=== PATIENT | male | born 2000 | race Caucasian/White ===

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

== ENCOUNTER 2020-07-28 14:24 | Emergency (ER) | payer OTHER, SELFPAY ==
--- NOTE | ~2020-07-28 | XR_ITS ---
EXAMINATION: XR forearm RT 2V DATE: 07/28/2020 14:45 INDICATION: Distal right ulnar pain post fall against washing machine. TECHNIQUE: AP an lateral views of the right forearm were obtained. COMPARISON: none FINDINGS: Alignment is normal. No fracture. Joint spaces are normal. Soft tissues are unremarkable. IMPRESSION: 1. Negative right forearm radiographs. Reviewed, dictated and finalized at location A.
[2020-07-28 14:30] VITALS: BP 139/57; PULSE 94; RESP 14; TEMP 37.2; O2SAT 100
--- NOTE | 2020-07-28 15:04 | ED.GENADULT ---
HPI - General Adult General Chief complaint: Extremity Injury, Upper Stated complaint: right forearm injury Time Seen by Provider: 07/28/20 15:05 Source: patient Mode of arrival: ambulatory Limitations: no limitations History of Present Illness HPI narrative: 20-year-old male patient presents to the [facility] with complaints of right forearm pain. Patient states he tripped over some boots today and states that he hit his right forearm on the corner of a washer. Patient denies taking thing for pain prior to arrival. Denies any numbness or tingling to the hand or fingertips. Denies any pain to the wrist. Related Data Home Medications Medication Instructions Recorded Confirmed No Home Medications 07/28/20 07/28/20 Allergies Allergy/AdvReac Type Severity Reaction Status Date / Time No Known Allergies Allergy Verified 07/28/20 14:54 Review of Systems Review of Systems: Narrative: CONSTITUTIONAL: Denies fever, chills, or sweats. EYES: Denies visual changes, redness, or discharge. ENT: Denies rhinorrhea, congestion, sore throat, or otalgia. CARDIOVASCULAR: Denies chest pain, palpitations, or edema. RESPIRATORY: Denies cough or dyspnea. GASTROINTESTINAL: Denies abdominal pain, nausea, vomiting, or diarrhea. GENITOURINARY: Denies dysuria or hematuria. SKIN: Denies rash or itching. MUSCULOSKELETAL: Denies back pain, joint pain, or myalgia. Positive right forearm pain NEUROLOGIC: Denies headache, numbness, or weakness. PSYCHIATRIC: Denies anxiety or depression. PMFSH Comments At the time of my signature I agree with nursing past medical history, surgical, social, and family history. There is no relevant family history pertinent to the presenting complaint. Exam Narrative: Exam Narrative: GENERAL: Well-appearing, well-nourished, and in no acute distress. HEAD: Normocephalic, atraumatic. EYES: PERRLA and EOMI. ENT: Nares clear, no rhinorrhea or epistaxis. Mucous membranes moist. NECK: Supple. No lymphadenopathy CHEST: Clear to auscultation. No respiratory distress. HEART: Regular rate and rhythm. No murmur heard. Normal peripheral pulses. ABDOMEN: Soft, nontender, nondistended, normal active bowel sounds. EXTREMITIES: The R forearm is without obvious asymmetry or deformity when compared to the L arm. Patient does have some swelling and tenderness noted on the ulnar side of the distal right forearm. No erythema, warmth. No open wounds. No overlying erythema or warmth. No bony crepitus or focal area of TTP. No scaphoid fullness or tenderness to direct palpation or axial load. Normal flex/extension, ulnar/radial deviation. Motor/sensory function of ulnar, radial, median nerves intact. Ulnar and radial pulses intact. Negaitve Phalen's/Tinel's sign. Negative Carter test. SKIN: Warm, dry, no rash. NEURO: No focal deficits. Alert and oriented x3. Course Vital Signs Vital signs: Vital Signs Temperature 37.2 C 07/28/20 14:30 Pulse Rate 94 07/28/20 14:30 Respiratory Rate 14 07/28/20 14:30 Blood Pressure 139/57 L 07/28/20 14:30 Pulse Oximetry 100 07/28/20 14:30 Temperature 37.2 C 07/28/20 14:30 Pulse Rate 94 07/28/20 14:30 Respiratory Rate 14 07/28/20 14:30 Blood Pressure 139/57 L 07/28/20 14:30 Pulse Oximetry 100 07/28/20 14:30 Vital signs reviewed. Medical Decision Making Differential Diagnosis Differential Diagnosis: Differential diagnosis: Paronychia, felon, cellulitis, flexor tenosynovitis, mallet finger, boutonniere deformity, flexor tendons, dislocated digits, unstable fracture, unstable ligamentous injury, closed space infection, carpal tunnel syndrome, contusion. Discussed with patient that the x-ray is negative for any acute fractures. Discussed with patient that he should continue to ice it, elevate it may take Tylenol and ibuprofen as needed for pain. Patient verbalized understanding of this denies any other questions or concerns at this time. Vital Signs Vital Signs:
== END 2020-07-28 15:10 | disposition home or self-care (01) ==
PROVIDERS: Emergency Provider Nurse Practitioner Family
DX: S50.11XA Contusion of right forearm, initial encounter (principal); W22.8XXA Striking against or struck by other objects, initial encounter
CPT/HCPCS: 73090; 99213; G0463

== ENCOUNTER 2022-12-03 08:24 | Emergency (ER) | payer OTHER, SELFPAY ==
[2022-12-03 09:17] VITALS: BP 131/64; PULSE 89; RESP 18; TEMP 36.9; O2SAT 98
--- NOTE | 2022-12-03 10:05 | ED.URI ---
HPI - URI/Sore Throat General Chief Complaint: Upper Respiratory Infection Stated Complaint: sorethroat Time Seen by Provider: 12/03/22 10:06 Source: patient and RN notes reviewed Mode of arrival: ambulatory Limitations: no limitations History of Present Illness HPI Narrative: 22 year old male who presents to [facility] care with complaints of cough and congestion,sinus drainage and pressure,chills, and sore throat since yesterday. He reports no known fevers or body aches and has been taking Mucinex for his symptoms. Patient reports that his infant son has been ill with respiratory infection. Patient states no shortness of breath, no tachypnea noted or any accessory muscle use with breathing, SAO2 98% on room air. Patient has not had COVID vaccinations or flu shot. MD elicited complaint: cough and sore throat Pertinent past history: seasonal allergies Onset (ago): day(s) (day 2 of symptoms) Treatments prior to arrival: other (Mucinex) Related Data Allergies Allergy/AdvReac Type Severity Reaction Status Date / Time No Known Allergies Allergy Verified 12/03/22 09:17 Review of Systems Review of Systems: CONSTITUTIONAL: Reports malaise, chills, sweats, no known fever. EYES: Denies visual changes, redness, or discharge. ENT: Reports rhinorrhea, congestion, sinus pain,no otalgia, positive for sore throat. CARDIOVASCULAR: Denies chest pain, palpitations, or edema. RESPIRATORY: Reports cough.? Denies dyspnea. GASTROINTESTINAL: Denies abdominal pain, nausea, vomiting, diarrhea SKIN: Denies rash or itching. MUSCULOSKELETAL: Denies myalgia. NEUROLOGIC: Denies headache. All systems reviewed & are unremarkable except as noted in HPI and below PMFSH Past Medical History Medical History (Updated 12/04/22 @ 08:02 by Jaky Lindquist NP) Fracture of left wrist Seasonal allergies Social History Social History (Updated 12/04/22 @ 08:08 by Jaky Lindquist NP) Smoking status: Never smoker Alcohol intake: current Alcohol use details: social Substance use: never Substance use type: does not use Living arrangements: with family Gender identity (if verbalized by the patient): Male Comments At time of signature, agree with nursing past medical, surgical, social and family history. There is no relevant family history pertinent to the presenting complaint Exam Narrative: GENERAL: Well-appearing, well-nourished, and in no acute distress. HEAD: Normocephalic EYES: PERRLA, conjunctivae clear ENT: Nares clear, turbinates edematous and erythematous, clear to light yellow discharge. Mucous membranes moist. TM pearly winston with dull light reflex bilaterally; no tragal tenderness. Oropharynx erythematous without lesions. Tonsils red enlarged and without exudate, no drooling, no hoarseness, no trismus, uvula midline. NECK: Supple. No lymphadenopathy CHEST: Clear to auscultation, breath sounds equal. No wheezing, rhonchi, rales, or stridor. No respiratory distress, speaks in full sentences.cough,SAO2 98% on room air HEART: Regular rate and rhythm. No murmur heard. SKIN: Warm, dry, no rash. NEURO: Alert and oriented x3. PSYCH: Normal mood and affect Course Course Emergency Course: Patient is aware of diagnosis, understands and agrees to treatment plan.? Anticipatory guidance given.? Patient agrees to follow-up as directed and is aware of reasons to seek care at the emergency department. Portions of this record may have been created with voice recognition software Level of Care: Express Care Visit Vital Signs Vital signs: Vital Signs Temperature 36.9 C 12/03/22 09:17 Pulse Rate 89 12/03/22 09:17 Respiratory Rate 18 12/03/22 09:17 Blood Pressure 131/64 12/03/22 09:17 Pulse Oximetry 98 12/03/22 09:17 Oxygen Delivery Room Air 12/03/22 09:17 Temperature 36.9 C 12/03/22 09:17 Pulse Rate 89 12/03/22 09:17 Respiratory Rate 18 12/03/22 09:17 Blood Pressure 131/64 02
== END 2022-12-03 11:08 | disposition home or self-care (01) ==
PROVIDERS: Emergency Provider Registered Nurse
DX: J03.90 Acute tonsillitis, unspecified (principal); Z20.822 Contact with and (suspected) exposure to COVID-19
CPT/HCPCS: 87081; 87426; 87804; 87880; 99213; C9803; G0463

== ENCOUNTER 2024-03-13 15:59 | Emergency (ER) | payer OTHER, SELFPAY ==
[2024-03-13 16:22] VITALS: BP 114/64; PULSE 90; RESP 18; TEMP 37.1; O2SAT 100
--- NOTE | 2024-03-13 18:14 | ED.URI ---
HPI - URI/Sore Throat General Chief Complaint: Upper Respiratory Infection Stated Complaint: Shortness of Breath/Cough Time Seen by Provider: 03/13/24 16:49 Source: patient, RN notes reviewed and old records reviewed Mode of arrival: ambulatory Limitations: no limitations History of Present Illness HPI Narrative: 23-year-old male to Express Care with complaint of fatigue, dry cough, absence of appetite for 3 days. Patient denies fever, nausea, vomiting, diarrhea, ear pain, throat pain, allergies, pertinent medical history, abdominal pain. Patient has attempted to treat at home with DayQuil relief. Patient able to tolerate fluids by mouth. Patient quiet and ill appearing in exam room. respirations even and nonlabored. No acute distress. Related Data Home Medications Medication Instructions Recorded Confirmed No Home Medications 03/13/24 03/13/24 Allergies Allergy/AdvReac Type Severity Reaction Status Date / Time No Known Allergies Allergy Verified 03/13/24 16:43 Review of Systems Review of Systems: All systems reviewed & are unremarkable except as noted in HPI and below Constitutional: Constitutional: Reports no additional constitutional complaints Eyes: Eyes: Reports no additional eye complaints ENT: Reports system reviewed and no additional complaints, except as documented Cardiovascular: Cardiovascular: Reports no additional cardiovascular complaints, Denies chest pain and Denies dyspnea Respiratory: Respiratory: Reports no additional respiratory complaints, Denies cough and Denies dyspnea Musculoskeletal: Musculoskeletal: Reports no additional musculoskeletal complaints Neurologic: Reports system reviewed and no additional complaints, except as documented Psychiatric: Psychiatric: Reports no additional psychiatric complaints PMFSH Past Medical History Medical History (Updated 03/15/24 @ 21:03 by Carolina David APRN) Fracture of left wrist Seasonal allergies Social History Social History (Updated 12/04/22 @ 08:08 by Jaky Lindquist NP) Smoking status: Never smoker Alcohol intake: current Alcohol use details: social Substance use: never Substance use type: does not use Living arrangements: with family Gender identity (if verbalized by the patient): Male Comments At the time of my signature, I reviewed and agree with the nursing past medical, surgical, social, and family history. There is no relevant family history pertinent to the patient complaint. Exam Const: General: cooperative, healthy appearing, comfortable, no acute distress, alert and well nourished Nutritional Appearance: well nourished Orientation/consciousness: patient oriented x3 Limitations: no limitations HENMT: Head: normal to inspection Ears: external ears normal Face/Nose/Sinus: Normal external nose present, Normal nares present, normal facial exam, No erythema and No edema Face and sinus: normal facial exam, no erythema and no edema Mouth: Yes Normal oral and palatal mucosa present Throat: posterior oropharynx abnormal erythema Eyes: General: appearance normal, both eyes and all related structures Neck: Neck: normal visual inspection, full ROM and no meningeal signs Lymphatic: no lymphadenopathy noted and no lymphedema noted Chest: Chest palpation & inspection: normal inspection of the chest Resp: Effort & Inspection: normal respiratory effort and able to speak in complete sentences Auscultation: clear to auscultation bilaterally Cardio: Jugular venous distension: no JVD Rate: regular rate Rhythm: regular rhythm Back/Spine/Pelvis: Cervical Spine: cervical ROM normal Skin: General skin exam: normal color, no rashes or lesions noted and turgor normal Neuro: General: patient oriented x3, gait normal, moves all extremities and no meningeal signs Speech: normal speech Gait exam (Neuro): Normal gait present Extrem: General: normal to inspection, full ROM and capillary refill francisco
== END 2024-03-13 18:15 | disposition home or self-care (01) ==
PROVIDERS: Emergency Provider Nurse Practitioner Family
DX: J06.9 Acute upper respiratory infection, unspecified (principal)
CPT/HCPCS: 87081; 87880; 99213; G0463

== ENCOUNTER 2025-02-08 19:39 | Emergency (ER) | payer OTHER, SELFPAY ==
--- OUTSIDE RECORDS SUMMARY | 2025-02-08 19:41 | XMS_ITS | Clinical Summary ---
Author Organization [facility] Address [facility] [place] [address] Care Team Providers Care Cable Engineer [employer] Name Role Phone Ivanna Carl APRN Primary Care Provider [phone] Allergies No known active allergies Medications propranolol (INDERAL) 20 MG tabletIndication s:Moderate anxiety,Severe depression ([facility]),Depress ion screening,Anxiet y and depression Take 1 tablet (20 mg total) by mouth 3 (three) times daily. 90 tablet 2 06/06/2024 Active escitalopram (LEXAPRO) 10 MG tabletIndication s:Anxiety and depression,Depre ssion screening Take 1 tablet (10 mg total) by mouth daily. 90 tablet 06/27/2024 Active Active Problems Problem Noted Date Diagnosed Date Anxiety and depression 06/06/2024 Severe depression ([facility]) 06/06/2024 Allergic rhinitis 02/03/2011 Immunizations Immunization Administration Dates Next Due Dtap (Generic) 06/01/2005, 2,2000,09/28,2000 HPV 06/22/2014 HPV GARDASIL 9-VALENT 06/14/2017 Hepatitis A Vaccine - 2 Dose 06/20/2009,06/26/20 08 Hepatitis B Pediatric 02/28/2001,2000,04/25 Hib (Generic) 2000,2000,2000 Hib Vaccine, Prp-D 11/21/2001, 1,2000,07/26 Influenza (Generic) 09/08/2010 Influenza Adult (Generic) 07/26/2019 MMR (Generic) 06/01/2005,05/19/2001 Meningococcal Vac A,C,Y,W-135 Sc 07/01/2017,05/26 PFIZER COVID-19 (ORIGINAL FO RMULATION, PURPLE CAP) mRNA, LNP-S, PF, 30 MCG/0.3 ML DOSE 08/01/2021 Pneumococcal (Generic) 11/21/2001,2000,2000,09/28 Polio IPV (Ipol) 06/01/2005, 1,2000,07/26 Polio Ipv (Generic) 06/01/2005, 1,2000,07/26 Tdap (Generic) 06/03/2010 Varicella Vaccine 06/26/2008,08/19/2001 Family History Medical History Relation Comments Diabetes Maternal Grandfather Cancer Maternal Grandmother lyphmnodes Breast Cancer Paternal Grandmother Relation Status Comments Maternal Grandfather Maternal Grandmother Paternal Grandmother Social History Tobacco Use Types Packs/Day Years Used Date Smoking Tobacco: Never Smokeless Tobacco: Never Tobacco Cessation:Counseling Given: Yes Alcohol Use Standard Drinks/Week Comments Yes 0 (1 standard drink = 0.6 oz pur e alcohol) rare AUDIT-C Answer Date Recorded Frequency of Alcohol Consumption Never 06/08/2019 Average Number of Drinks Not on file 019 Frequency of Binge Drinking Not on file 05/25 PHQ-2 Answer Date Recorded Patient Health Questionnaire-2 Score 0 06/27/2024 Education Answer Date Recorded What is the highest level of school you have completed or the highest degree you have received? High school graduate 06/13/2019 Sex and Gender Information Value Date Recorded Sex Assigned at Not on file Legal Sex Male 5:37 PM CDT Gender Identity Not on file Sexual Orientation Not on file Last Filed Vital Signs Vital Sign Reading Time Taken Comments Blood Pressure 116/67 06/27/2024 8:25 AM CDT Pulse 76 06/27/2024 8:25 AM CDT Temperature 37.2 C (98.9 F) 06/27/2024 8:25 AM CDT Respiratory Rate 16 06/27/2024 8:25 AM CDT Oxygen Saturation 100% 06/27/2024 8:25 AM CDT Inhaled Oxygen Concentration - - Weight 70.8 kg (156 lb) 06/27/2024 8:25 AM CDT Height 182.9 cm (6') 06/27/2024 8:25 AM CDT Body Mass Index 21.16 06/27/2024 8:25 AM CDT Plan of Treatment Health Maintenance Due Date Last Done Comments Annual Physical 2003 PHQ-2 (Physician Wainwright) 10/25/2024 06/27/2024 COVID-19 Vaccine ( season) 2025 08/01/2021, 07/11/2021 Postponed from 06/25/2024 (Patient Refused) DTaP, Tdap and Td Vaccines (7 - Td or Tdap) 06/27/2025 06/03/2010, 06/01/2005, 11/21/2001, Additional history exists Postponed from 06/03/2020 (Patient Refused) Hepatitis C 06/27/2054 Postponed from 2018 (Patient Refused) Hepatitis B Vaccines Completed 02/28/2001, 2000, 2000 Pneumococcal Vaccine: Pediatrics (0 to 5 Years) and At-Risk Patients (6 to 49 Years) Aged Out 11/21/2001, 05/19/2001, 2000, Additional history exists No longer eligible based on patient's age to complete this topic HPV Vaccines Completed 06/14/2017, 06/22/2014 Meningococcal Vaccine Aged Out 07/01/2017, 014 No longer eligible based on patient's age to complete this topic Meningococcal B Vaccine Aged Out No l onger eligible based on patient's age to complete this topic RSV Immunizations Under 20 Months Aged Out No longer eligible based on patient's age to complete this topic Insurance [employer] Care Teams [employer] Relationship Specialty Start Date End Date Ivanna Carl APRN [id number] [place] [address] PCP - General NURSE PRACTITIONER 02/14/24
--- OUTSIDE RECORDS SUMMARY | 2025-02-08 19:41 | XMS_ITS | Clinical Summary ---
Author Organization [facility] [employer] [place] Address [address] [place] [address] Care Team Providers Care Medical Practice Administrator Name Role Phone Unavailable Primary Care Provider Unavailabl e Allergies No known active allergies Medications fluticasone propionate (FLONASE) 50 mcg/spray [place], Suspension nasal inhalerIndicatio ns:Viral upper respiratory infection Administer 2 Sprays in each nostril daily. 16 Gram 0 Active pseudoephedrine (SUDAFED 12 HOUR) 120 mg Extended Release 12 hour tablet Take 1 Tablet (120 mg) by mouth 2 times daily as needed for Congestion. If it keeps you up at night then only take once daily. 30 Tablet 1 Active Active Problems No known active problems Immunizations Immunization Administration Dates Next Due (ADACEL/BOOSTRIX)(10 YR UP) TDAP VACCINE, 0.5ML, IM 06/03/2010 (GARDASIL 9)(9-45 YRS) HUMAN PAPILLOMAVIRUS VACCINE, TYPES 6, 11, 16, 18, 31, 33, 45, 52, 58, NONAVALENT (9VHPV), 2 OR 3 DOSE, IM 06/14/2017 (GARDASIL)(9-45 YRS) HUMAN PAPILLOMAVIRUS VACCINE, TYPES 6, 11, 16, 18, QUADRIVALENT (4VHPV), 3 DOSE, IM 06/22/2014 (HAVRIX/VAQTA)(12 MO-18 YRS) HEPATITIS A VACCINE 0.5 ML PED/ADOL 2 DOSE, IM 06/20/2009,06/26/2008 (INFANRIX)(6 WKS-6 YRS) DIPT HERIA, TETANUS TOXOIDS, AND ACCELLULAR PERTUSSIS VACCINE (DTAP), 0.5 ML IM 06/01/2005,11/21/2001,2000,09/28,2000 (IPOL)(6 WKS AND UP) POLIOVI JAKE VACCINE, INACTIVATED (IPV), 3 DOSE, SUBCUT OR IM 06/01/2005,08/19/2001,2000,07/26 (M-M-R II/PRIORIX)(12 MO UP) MEASLES, MUMPS AND RUBELLA VIRUS VACCINE, 0.5 ML IM/SUBCUT 06/01/2005,05/19/2001 (RECOMBIVAX HB/ENGERIX-B)(0- 19 YRS) HEPATITIS B VACCINE 5 MCG/0.5 ML OR 10 MCG/0.5 ML PED OR ADOL 3 DOSE (PF), IM 02/28/2001,2000,2000 (VARIVAX)(12 MOS UP)VARICELL A VIRUS VACCINE (PF) 0.5 ML, SUB CUT 06/26/2008,08/19/2001 Hemophilus influenza b vacci ne (Hib), PRP-D conjugate, for booster use only, intramuscular use 11/21/2001,2000,2000,07/26 INFLUENZA VACCINE QUADRIVALE NT 6 MOS UP IM 07/26/2019 Influenza Vaccine Tri Split 4+ Im 09/08/2010 Meningococcal Polysaccharide Vaccine SQ 07/01/2017,06/22/2014 Pneumococcal conjugate, unsp ecified formulation 11/21/2001,05/19/2001,2000,09/28 Skin Test TB 06/01/2005,05/19/2001 Family History Medical History Relation Name Comments No Known Problems Father Diabetes Maternal Grandfather Cancer Maternal Grandmother No Known Problems Mother Unknown Paternal Grandfather Heart Attack Paternal Grandmother No Known Problems Sister 1 No Known Problems Sister 2 No Known Problems Sister 3 Relation Name Status Comments Father Alive Maternal Grandfather Alive Maternal Grandmother Mother Alive Paternal Grandfather Paternal Grandmother Alive Sister 1 Alive Sister 2 Alive Sister 3 Alive Social History Tobacco Use Types Packs/Day Years Used Date Smoking Tobacco: Never Smokeless Tobacco: Never Tobacco Cessation:Counseling Given: Not Answered Alcohol Use Standard Drinks/Week Comments Yes 0 (1 standard drink = 0.6 oz pur e alcohol) Feeling Safe Answer Date Recorded Are you in a relationship wi th someone who hurts you emotionally and/or physically? No 02/23/2023 Sex and Gender Information Value Date Recorded Sex Assigned at Not on file Legal Sex Male 8:29 AM CDT Gender Identity Not on file Sexual Orientation Not on file Last Filed Vital Signs Vital Sign Reading Time Taken Comments Blood Pressure 138/72 02/23/2023 11:25 AM CDT Pulse 80 02/23/2023 11:25 AM CDT Temperature 37.3 C (99.2 F) 02/23/2023 11:25 AM CDT Respiratory Rate 18 02/23/2023 11:25 AM CDT Oxygen Saturation 100% 02/23/2023 11:25 AM CDT Inhaled Oxygen Concentration - - Weight 72.6 kg (160 lb) 02/23/2023 11:25 AM CDT Height 182.9 cm (6') 02/23/2023 11:25 AM CDT Body Mass Index 21.7 02/23/2023 11:25 AM CDT Plan of Treatment Health Maintenance Due Date Last Done Comments DTAP/TDAP/TD VACCINES (7 - Td or Tdap) 06/03/2020 06/03/2010, 06/01/2005, 06/01/2005, Additional history exists INFLUENZA VACCINE (#1) 2024 07/26/2019, 2009 HEPATITIS B VACCINES Completed 02/28/2001, 2000, 2000 PNEUMOCOCCAL VACCINE 0-49 YEARS Aged Out 11/21/2001, 05/19/2001, 2000, Additional history exists No longer eligible based on patient's age to complete this topic HPV VACCINES Completed 06/14/2017, 06/22/2014 Insurance [employer] OPEN ACCESS
--- OUTSIDE RECORDS SUMMARY | 2025-02-08 19:41 | XMS_ITS | Clinical Summary ---
Author Organization [facility] [employer] Address [address] [place] [address] Care Team Providers Care Stock Handler Name Role Phone Unavailable Primary Care Provider Unavailabl e Source Comments [facility],non-owned Affiliates and Associated Physician Practices is amultiple site organization consisting of ambulatory clinics and hospital sitesin [place], [place], [place] and [place]. This disclosure is being madepursuant to the Care Everywhere program and may not contain all information available regarding this patient. Last updated 18.[facility] [employer] Allergies No known active allergies Medications * Be aware that medications may not be up to date on this document. Alwaysverify current medications with the patient. No known medications Active Problems Problem Noted Date Diagnosed Date Allergic rhinitis 02/03/2011 Immunizations Immunization Administration Dates Next Due INFLUENZA VACCINE, TRIV. (AF LURIA, FLUZONE TRIVALENT; 6MO+) (IIV3) 09/08/2010 DTaP VACCINE IM (6wk-6yrs) 06/01/2005,,2000,09/28,2000 HEP A PEDS 2 DOSE 06/20/2009,06/26/2008 HEP B VACCINE, PED/ADOL 02/28/2001,2000, HIB BOOSTER 11/21/2001, 1,2000,07/26 Human Papilloma Virus Nine[place] lent Vaccine 06/14/2017 Human Papilloma Virus Kim valent Vaccine 06/22/2014 MENINGOCOCCAL ACWY (MCV4P) VAC IM 07/01/2017, MMR 06/01/2005,05/19/2001 PNEUMOCOCCAL CONJ, PEDS 11/21/2001,05/19,2000,09/28 POLIO IPV 06/01/2005, 1,2000,07/26 TDAP (7yrs+) 06/03/2010 VARICELLA 06/26/2008,08/19/2001 Social History Tobacco Use Types Packs/Day Years Used Date Smoking Tobacco: Never Alcohol Use Standard Drinks/Week Comments No 0 (1 standard drink = 0.6 oz pur e alcohol) Sex and Gender Information Value Date Recorded Sex Assigned at Not on file 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 Gender Identity Not on file Sexual Orientation Not on file Last Filed Vital Signs Vital Sign Reading Time Taken Comments Blood Pressure 126/64 06/14/2017 1:03 PM CDT Pulse 68 06/14/2017 1:03 PM CDT Temperature 37.1 C (98.7 F) 07/01/2017 1:08 PM CDT Respiratory Rate 10 05/19/2012 10:15 AM CDT Oxygen Saturation 98% 05/19/2012 10:15 AM CDT Inhaled Oxygen Concentration - - Weight 69.1 kg (152 lb 6.4 oz) 06/14/2017 1:03 P M CDT Height 178.4 cm (5' 10.25 ) 06/14/2017 1:03 PM C DT Body Mass Index 21.71 06/14/2017 1:03 PM CDT Plan of Treatment Health Maintenance Due Date Last Done Comments HIV SCREENING 2015 HEPATITIS C SCREENING 05/14/2018 DTAP/TDAP/TD VACCINES (7 - Td or Tdap) 06/03/2020 06/03/2010, 06/01/2005, 11/21/2001, Additional history exists COVID-19 VACCINE ( - season) 2024 DEPRESSION SCREENING 10/25/2024 INFLUENZA VACCINE (Season Ended) 2025 09/08/2010 ZOSTER VACCINE (1 of 2) 2050 HEPATITIS B VACCINE Completed 02/28/2001, 2000, 2000 HIB VACCINE Completed 11/21/2001, 02/2001, 2000, Additional history exists PNEUMOCOCCAL VACCINE Completed 11/21/2001, 05/19/2001, 2000, Additional history exists HPV VACCINE Completed 06/14/2017, 06/22/2014 MENINGOCOCCAL GROUPS A/C/Y/W VACCINE Completed 07/01/2017, 06/22/2014 MENINGOCOCCAL (Group B) VACCINE SHARED DECISION-MAKING Aged Out No longer eligible based on patient's age to complete this topic Goals Goal Patient Goal Type Associated Problems Recent Progress Patient-Stated? Author Use safety retraint in car Lifestyle On track( 017 1:04 PM CDT) No Jaky James RN Insurance [id number] [address] [facility] [place] Address: [address] [address] [facility]
[2025-02-08 19:49] VITALS: BP 156/57; PULSE 86; RESP 16; TEMP 36.9; O2SAT 100
--- NOTE | 2025-02-08 19:50 | ED_ITS ---
HPI - Male Genitourinary General Chief complaint: Urogenital-Male Stated complaint: STI Testing Time Seen by Provider: 02/08/25 19:50 Source: patient and RN notes reviewed Mode of arrival: ambulatory Limitations: no limitations History of Present Illness HPI Narrative: 24-year-old male presented for complaint of exposure to chlamydia. Notified last night. He denies any symptoms. Related Data Allergies Allergy/AdvReac Type Severity Reaction Status Date / Time No Known Allergies Allergy Verified 02/08/25 19:48 Review of Systems Review of Systems: per HPI [facility] Past Medical History Medical History (Updated 02/08/25 @ 19:53 by Shellie Verduzco, [employer]ACH[employer] OFFICER) Seasonal allergies Fracture of left wrist Social History Social History (Updated 12/04/22 @ 08:08 by Jaky Lindquist NP) Smoking status: Never smoker Alcohol intake: current Alcohol use details: social Substance use: never Substance use type: does not use Living arrangements: with family Gender identity (if verbalized by the patient): Male Comments At time of signature, I have reviewed and agree with nursing past medical, surgical, social and family history unless otherwise noted. Please see nursing chart for further information. There is no relevant family history pertinent to the presenting complaint Exam Narrative: GENERAL: Well-appearing and in no acute distress. ENT: Mucous membranes pink and moist. NECK: Normal AROM. Supple. SKIN: Warm, dry, no rash. NEURO: No focal deficits. Alert and oriented x3. Gait steady. PSYCH: Normal affect. Course Course Emergency Course: Patient is aware of diagnosis, understands and agrees to treatment plan. Anticipatory guidance given. Patient agrees to follow-up as directed and is aware of reasons to seek care at the emergency department. Portions of this record may have been created with voice recognition software Level of Care: Express Care Visit Vital Signs Vital signs: Reviewed MDM - Male Genitourinary MDM Narrative Medical decision making narrative: Patient presenting with concern for STD. Urine specimen collected for GC, chlamydia, trich. Informed Pt will be contacted w/ results when they become available if they are positive. Discussed with patient that it takes up to 7 days for results of cultures to be released and explained that we may treat empirically at this time. Agreeable to treatment at this time for chlamydia. I have instructed the patient to return to the ER at any time if there are any new or worsening symptoms. The patient expressed understanding of and agreement with this plan. Differential Diagnosis Differential diagnosis: Likely urinary tract infection and urethritis Discharge Plan Discharge Clinical Impression: Concern about STD in male without diagnosis Patient Disposition: Home Condition: Stable Instructions: Antibiotic Form, Chlamydia (ED), Safe Sex Practices (ED) Additional Instructions: Your urine sample has been sent off to test for gonorrhea, chlamydia, and trichomonas infections. You will be called if any of your tests come back positive. These tests can take up to 5-7 days to come back. Prescriptions for Doxycycline has been sent to your pharmacy to cover for chlamydia. If your tests come back positive you should need no further treatment. You will need to notify any partners that you have so they can be tested and treated. To avoid reinfection, you are advised to abstain from sexual intercourse for 7 days (and any symptoms have resolved) to prevent transmission. If your tests come back negative and you are still experiencing symptoms, please follow-up with your PCP for further evaluation and treatment. If your symptoms worsen to include fever, abdominal pain, or back pain, please go to the hospital immediately. Patient Language: Maltese Prescriptions: New doxycycline hyclate 100 mg tablet 100 mg PO BID 7 Days Qty: 14 0RF Follow-up/Referrals: PHYSICIAN,PAN WASHER HAND [Primary Care Provider] - Time of Disposition: 19:55
[2025-02-09 19:43] LABS: Trichomonas Vag PCR NOT DETECTED (NOT DETECTE)
[2025-02-09 20:06] LABS: Chlamydia trachomatis NOT DETECTED (NOT DETECTE); Neisseria gonorrhoeae PCR NOT DETECTED (NOT DETECTE)
== END 2025-02-08 20:00 | disposition home or self-care (01) ==
PROVIDERS: Emergency Provider Nurse Practitioner Family
DX: Z20.2 Contact with and (suspected) exposure to infections with a predominantly sexual mode of transmission (principal); Z11.3 Encounter for screening for infections with a predominantly sexual mode of transmission
CPT/HCPCS: 87491; 87591; 87661; 99213; G0463